=== PATIENT | male | born 1965 | race American Indian/Alaskan Native ===

== ENCOUNTER 2020-05-01 10:32 | Emergency (ER) | payer MEDICARE ==
[2020-05-01 10:40] VITALS: BP 148/95
[2020-05-01] MEDS ORDERED: ASPIRIN 325 MG TAB PO ONE (10:40)
--- NOTE | 2020-05-01 11:12 | XRay Report ---
CHEST 2 VIEWS INDICATION / CLINICAL INFORMATION: Chest Pain. COMPARISON: None available. FINDINGS: SUPPORT DEVICES: None. HEART / MEDIASTINUM: No significant abnormality. LUNGS / PLEURA: No significant pulmonary or pleural abnormality. No pneumothorax. ADDITIONAL FINDINGS: No significant additional findings. IMPRESSION: No acute cardiopulmonary abnormality. Signer Name: Davey Fung MD Signed: 05/01/2020 11:07 AM Workstation Name: [id number]
[2020-05-01 11:41] LABS: Basophils # (Auto) 0.1 K/mm3 (0.0-0.1); Eosinophils # (Auto) 0.5 K/mm3 (0.0-0.4); Hematocrit 46.3 % (35.5-45.6); Hemoglobin 15.7 gm/dl (11.8-15.2); Lymphocytes # (Auto) 2.7 K/mm3 (1.2-5.4); Lymphocytes % (Auto) 30.1 % (13.4-35.0); Mean Corpuscular HGB Conc 34 % (32-34); Mean Corpuscular Volume 87 fl (84-94); Monocytes # (Auto) 0.6 K/mm3 (0.0-0.8); Platelet Count 203 K/mm3 (140-440); Red Cell Distribution Width 14.5 % (13.2-15.2)
[2020-05-01 11:44] LABS: Basophils % (Auto) 0.7 % (0.0-1.8); Eosinophils % (Auto) 5.5 % (0.0-4.3)
[2020-05-01 12:11] LABS: BUN/Creatinine Ratio 9; Blood Urea Nitrogen 8 mg/dL (9-20); Calcium 9.2 mg/dL (8.4-10.2); Hemolysis Index 10
--- NOTE | 2020-05-01 13:06 | Emergency Department Report ---
<ELIZABETH MAURER - Last Filed: 05/02/20 18:37> ED General Adult HPI - General Chief complaint: Chest Pain Stated complaint: CHEST PAIN Time Seen by Provider: 05/01/20 12:56 Source: patient Mode of arrival: Ambulatory Limitations: No Limitations - History of Present Illness Initial comments: 54-year-old -[place] male presents to the emergency room complaining of left-sided chest pain that is intermittent since last night. Patient denies any nausea vomiting no diaphoresis. Patient reports he does suffer from anxiety and has had chest pains in the past but was not sure if this is the same. Patient is followed by Dr. Trevon Guzman as a primary care provider and has seen Dr. You from [facility] 2 to 3 years ago with a duplex in a stress test. Patient reports he does not have pain at this time. Patient denies any any other past medical history except hypertension and he takes his lisinopril 5 mg daily and has hydrochlorothiazide 12.5 mg daily. -: Last night Location: chest Radiation: non-radiation Severity scale (0 -10): 5 Quality: stabbing, sharp Consistency: intermittent Improves with: rest Worsens with: none Associated Symptoms: denies: cough, diaphoresis, fever/chills, headaches, loss of appetite, malaise, nausea/vomiting, shortness of breath Treatments Prior to Arrival: none - Related Data Allergies Allergy/AdvReac Type Severity Reaction Status Date / Time sulfamethoxazole AdvReac Hives Verified 05/01/20 10:40 [From Bactrim] trimethoprim [From Bactrim] AdvReac Hives Verified 05/01/20 10:40 ED Past Medical Hx - Past Medical History Hx Hypertension: Yes - Surgical History Past Surgical History?: Yes Additional Surgical History: lumbar sx - Social History Smoking Status: Former Smoker Substance Use Type: Alcohol ED Physical Exam - General Limitations: No Limitations General appearance: alert, in no apparent distress - Head Head exam: Present: atraumatic, normocephalic - Eye Eye exam: Present: normal appearance - ENT ENT exam: Present: mucous membranes moist - Neck Neck exam: Present: normal inspection - Respiratory Respiratory exam: Present: normal lung sounds bilaterally. Absent: respiratory distress - Cardiovascular Cardiovascular Exam: Present: regular rate, normal rhythm. Absent: systolic murmur, diastolic murmur, rubs, gallop - GI/Abdominal GI/Abdominal exam: Present: soft, normal bowel sounds. Absent: distended, tenderness, guarding - Extremities Exam Extremities exam: Present: normal inspection - Back Exam Back exam: Present: normal inspection - Neurological Exam Neurological exam: Present: alert, oriented X3, normal gait - Psychiatric Psychiatric exam: Present: normal affect, normal mood - Skin Skin exam: Present: warm, dry, intact, normal color. Absent: rash ED Medical Decision Making - Lab Data Result diagrams: 05/01/20 11:18 05/01/20 11:18 - Radiology Data Radiology results: report reviewed Patient: PATRICE GARCIA MR#: [id number] : 1965 Acct:[id number] Age/Sex: 54 / M ADM Date: 05/01/20 Loc: ED Attending Dr: Ordering Physician: SHARDA RAMSEY MD Date of Service: 05/01/20 Procedure(s): XR chest routine 2V Accession Number(s): [id number] cc: ED MD ROXY Fluoro Time In Minutes: CHEST 2 VIEWS INDICATION / CLINICAL INFORMATION: Chest Pain. COMPARISON: None available. FINDINGS: SUPPORT DEVICES: None. HEART / MEDIASTINUM: No significant abnormality. LUNGS / PLEURA: No significant pulmonary or pleural abnormality. No pneu mothorax. ADDITIONAL FINDINGS: No significant additional findings. IMPRESSION: No acute cardiopulmonary abnormality. Signer Name: Tarsha Fung MD Signed: 05/01/2020 11:07 AM Workstation Name: [id number] Transcribed By: SS Dictated By: TARSHA FUNG Electronically Authenticated By: TARSHA FUNG Signed Date/Time: 05/01/201106 DD/ 06 TD/TT: - Medical Decision Making 54-year-old -[place] male presents to the emergency room complaining of left-sided chest pain that is intermittent since last night. Patient denies any nausea vomiting no diaphoresis. Patient reports he does suffer from anxiety and has had chest pains in the past but was not sure if this is the same. Patient is followed by Dr. Trevon Guzmna as a primary care provider and has seen Dr. You from [facility] 2 to 3 years ago with a duplex in a stress test. Patient reports he does not have pain at this time. Patient denies any any other past medical history except hypertension and he takes his lisinopril 5 mg daily and has hydrochlorothiazide 12.5 mg daily. Labs are stable no elevation of troponin. Chest x-ray shows no acute abnormalities. EKG is borderline ST elevation in the anterior leads signed off by Dr. Patrice Carter. ED Disposition Clinical Impression: Atypical chest pain, Anxiety Disposition: DC-01 TO HOME OR SELFCARE Is pt being admited?: No Does the pt Need Aspirin: No Condition: Stable Instructions: Chest Pain (ED) Additional Instructions: Recommend to continue with your hypertensive medication. 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 Return back to the emergency room with any worsening chest pain shortness of breath. Referrals: TREVON GUZMAN MD [Primary Care Provider] - 3-5 Days NORMAN YOU MD [Staff Physician] - 3-5 Days Forms: AMA Form, Work/School Release Form(ED) <PATRICE CARTER - Last Filed: 05/03/20 00:22> ED Review of Systems ROS: Stated complaint: CHEST PAIN Other details as noted in HPI ED Course Vital Signs 05/01/20 10:38 Temperature 97.9 F Pulse Rate 86 Respiratory 18 Rate Blood Pressure 148/95 O2 Sat by Pulse 98 Oximetry ED Medical Decision Making - Lab Data Result diagrams: 05/01/20 11:18 05/01/20 11:18 Critical care attestation.: If time is entered above; I have spent that time in minutes in the direct care of this critically ill patient, excluding procedure time. ED Disposition Is pt being admited?: No Does the pt Need Aspirin: No
== END 2020-05-01 14:53 | disposition home or self-care (01) ==
LOC: ED 10:32
DX: R07.89 Other chest pain (principal); F41.9 Anxiety disorder, unspecified; I10 Essential (primary) hypertension; Z98.890 Other specified postprocedural states; Z87.891 Personal history of nicotine dependence; Z88.8 Allergy status to other drugs, medicaments and biological substances
CPT/HCPCS: 36415; 71046; 80048; 84484; 85025; 93005

== ENCOUNTER 2021-11-27 10:50 | Emergency (ER) | payer MEDICARE ==
[2021-11-27] MEDS ORDERED: HEPARIN 10,000 UNITS/10 ML VIAL IV PRN (11:36)
[2021-11-27] MEDS ORDERED: SODIUM CHLORIDE 0.9% 1000 ML 1,000 ML IV ONE (11:36)
[2021-11-27 11:46] VITALS: BP 131/76
--- NOTE | 2021-11-27 12:11 | XRay Report ---
CHEST 1 VIEW INDICATION / CLINICAL INFORMATION: Dysrhythmia STUDY TIME: 1152 COMPARISON: 05/01/2020 and 08/21/2011 but only lateral views available currently FINDINGS: SUPPORT DEVICES: None HEART / MEDIASTINUM: No significant abnormality. LUNGS / PLEURA: No significant acute pulmonary or pleural abnormality. No pneumothorax. ADDITIONAL FINDINGS: No significant additional findings. Signer Name: Param Rodriguez MD Signed: 11/27/2021 12:07 PM Workstation Name: [id number]
[2021-11-27 12:29] LABS: Basophils # (Auto) 0.1 K/mm3 (0.0-0.1); Basophils % (Auto) 0.7 % (0.0-1.8); Eosinophils # (Auto) 0.5 K/mm3 (0.0-0.4); Eosinophils % (Auto) 5.8 % (0.0-4.3); Hematocrit 49.6 % (35.5-45.6); Hemoglobin 16.3 gm/dl (11.8-15.2); Lymphocytes # (Auto) 2.5 K/mm3 (1.2-5.4); Lymphocytes % (Auto) 31.7 % (13.4-35.0); Mean Corpuscular HGB Conc 33 % (32-34); Mean Corpuscular Volume 87 fl (84-94); Monocytes # (Auto) 0.6 K/mm3 (0.0-0.8); Monocytes % (Auto) 7.6 % (0.0-7.3); Platelet Count 175 K/mm3 (140-440); Red Blood Count 5.68 M/mm3 (3.65-5.03); Red Cell Distribution Width 13.9 % (13.2-15.2)
[2021-11-27 12:36] LABS: INR 0.98 (0.87-1.13)
[2021-11-27 12:58] LABS: Bilirubin,Urine NEG (Negative); Blood,Urine NEG (Negative); Color,Urine Yellow (Yellow); Mucus,Urine FEW /HPF; Protein,Urine <15 mg/dL mg/dL (Negative); Urobilinogen,Urine < 2.0 mg/dL (<2.0)
[2021-11-27 13:05] LABS: Amphetamine Screen,Urine Negative; Benzodiazepines Screen,Urine Negative; Cannabinoid Screen,Urine Negative; Cocaine Screen,Urine Negative; Methadone Screen,Urine Negative; Opiate Screen,Urine Negative
[2021-11-27 13:15] LABS: Creatine Kinase MB 4.8 ng/mL (0.0-4.0)
[2021-11-27 13:18] LABS: Alanine Aminotransferase 21 units/L (7-56); Albumin 4.5 g/dL (3.9-5); BUN/Creatinine Ratio 12; Blood Urea Nitrogen 11 mg/dL (9-20); Calcium 9.3 mg/dL (8.4-10.2); Hemolysis Index 9
--- NOTE | 2021-11-27 13:25 | Emergency Department Report ---
ED Palpitations HPI - General Chief Complaint: Arrhythmia/Palpitations Stated Complaint: CHEST PAIN PALPITATION Time Seen by Provider: 11/27/21 11:36 Source: patient Mode of arrival: Ambulatory Limitations: No Limitations - History of Present Illness Initial Comments: C/O chest pain and palpitations for 3-4 days pt son was killed and has been having palpitation for few days on and off he feels it gets fast then slow -: Sudden, days(s) Context: occured during rest Associated Symptoms: chest pain. denies: shortness of breath, syncope, near- syncope, diaphoresis, cough, parasthesias, feeling of impending doom - Related Data Home Medications Medication Instructions Recorded Confirmed Last Taken ALPRAZolam [Xanax TAB] 2 mg PO TID PRN 10/15/21 10/15/21 Unknown Aspirin [Bostonia Aspirin EC] 81 mg PO DAILY 10/15/21 10/15/21 Unknown HYDROcodone/APAP 5-325 [[place] 1 each PO Q6HR PRN 10/15/21 10/15/21 Unknown 5/325] Lisinopril/Hydrochlorothiazide 1 each PO DAILY 10/15/21 10/15/21 Unknown [Zestoretic 10-12.5 mg Tablet] Omeprazole 20 mg PO DAILY 10/15/21 10/15/21 Unknown Tamsulosin [Flomax] 0.4 mg PO QDAY 10/15/21 10/15/21 Unknown Allergies Allergy/AdvReac Type Severity Reaction Status Date / Time sulfamethoxazole AdvReac Hives Verified 05/01/20 10:40 [From Bactrim] trimethoprim [From Bactrim] AdvReac Hives Verified 05/01/20 10:40 ED Review of Systems ROS: Stated complaint: CHEST PAIN PALPITATION Other details as noted in HPI Constitutional: denies: chills, fever Eyes: denies: eye pain, eye discharge, vision change ENT: denies: ear pain, throat pain Respiratory: denies: cough, shortness of breath, wheezing Cardiovascular: denies: chest pain, palpitations Endocrine: no symptoms reported Gastrointestinal: denies: abdominal pain, nausea, diarrhea Genitourinary: denies: urgency, dysuria Musculoskeletal: denies: back pain, joint swelling, arthralgia Skin: denies: rash, lesions Neurological: denies: headache, weakness, paresthesias Psychiatric: denies: anxiety, depression Hematological/Lymphatic: denies: easy bleeding, easy bruising ED Past Medical Hx - Past Medical History Previous Medical History?: Yes Hx Hypertension: Yes (X 15 YRS) Hx GERD: Yes Additional medical history: Heart palpitation - Surgical History Past Surgical History?: Yes Additional Surgical History: lumbar sx - Social History Smoking Status: Former Smoker - Medications Home Medications: Home Medications Medication Instructions Recorded Confirmed Last Taken Type ALPRAZolam [Xanax TAB] 2 mg PO TID PRN 10/15/21 10/15/21 Unknown History Aspirin [Bostonia Aspirin EC] 81 mg PO DAILY 10/15/21 10/15/21 Unknown History HYDROcodone/APAP 5-325 [[place] 1 each PO Q6HR PRN 10/15/21 10/15/21 Unknown History 5/325] Lisinopril/Hydrochlorothiazide 1 each PO DAILY 10/15/21 10/15/21 Unknown History [Zestoretic 10-12.5 mg Tablet] Omeprazole 20 mg PO DAILY 10/15/21 10/15/21 Unknown History Tamsulosin [Flomax] 0.4 mg PO QDAY 10/15/21 10/15/21 Unknown History ED Physical Exam - General Limitations: No Limitations General appearance: alert, in no apparent distress - Head Head exam: Present: atraumatic, normocephalic - Eye Eye exam: Present: normal appearance - ENT ENT exam: Present: mucous membranes moist - Neck Neck exam: Present: normal inspection - Respiratory Respiratory exam: Present: normal lung sounds bilaterally. Absent: respiratory distress - Cardiovascular Cardiovascular Exam: Present: regular rate, normal rhythm. Absent: systolic murmur, diastolic murmur, rubs, gallop - GI/Abdominal GI/Abdominal exam: Present: soft, normal bowel sounds - Rectal Rectal exam: Present: deferred - Extremities Exam Extremities exam: Present: normal inspection - Back Exam Back exam: Present: normal inspection - Neurological Exam Neurological exam: Present: alert, oriented X3 - Psychiatric Psychiatric exam: Present: normal affect, normal mood - Skin Skin exam: Present: warm, dry, intact, normal color. Absent: rash ED Course Vital Signs 11/27/21 11:46 Temperature 98.7 F Pulse Rate 83 Respiratory 20 Rate Blood Pressure 131/76 [Right] O2 Sat by Pulse 98 Oximetry - Reevaluation(s) Reevaluation #1: 11/27/21 13:24 work up negative , vss , ekg showed normal sinus rythm ED Medical Decision Making - Lab Data Result diagrams: 11/27/21 12:04 11/27/21 12:04 - EKG Data -: EKG Interpreted by Me EKG shows normal: sinus rhythm Rate: normal - EKG Data When compared to previous EKG there are: no significant change Critical care attestation.: If time is entered above; I have spent that time in minutes in the direct care of this critically ill patient, excluding procedure time. ED Disposition Clinical Impression: Palpitation Disposition: 01 HOME / SELF CARE / HOMELESS Is pt being admited?: No Does the pt Need Aspirin: No Condition: Stable Instructions: Palpitations, [id number] Referrals: ANUPAM MONTES MD [Primary Care Provider] - 3-5 Days NORMAN YOU MD [Staff Physician] - 3-5 Days
--- NOTE | 2021-11-30 08:58 | Electrocardiograph Report ---
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
== END 2021-11-27 14:02 | disposition home or self-care (01) ==
LOC: ED 10:50
DX: R00.2 Palpitations (principal); I10 Essential (primary) hypertension; Z87.891 Personal history of nicotine dependence; Z88.2 Allergy status to sulfonamides; Z79.899 Other long term (current) drug therapy
CPT/HCPCS: 36415; 71045; 80053; 80307; 81001; 82550; 82553; 84484; 85025; 85610; 93005; 96360; 99284

== ENCOUNTER 2021-12-20 22:55 | Emergency (ER) | payer MEDICARE ==
[2021-12-20 23:36] LABS: Basophils # (Auto) 0.1 K/mm3 (0.0-0.1); Basophils % (Auto) 0.7 % (0.0-1.8); Eosinophils # (Auto) 0.4 K/mm3 (0.0-0.4); Eosinophils % (Auto) 4.7 % (0.0-4.3); Hematocrit 45.7 % (35.5-45.6); Hemoglobin 15.1 gm/dl (11.8-15.2); Lymphocytes # (Auto) 2.9 K/mm3 (1.2-5.4); Lymphocytes % (Auto) 34.8 % (13.4-35.0); Mean Corpuscular HGB Conc 33 % (32-34); Mean Corpuscular Volume 88 fl (84-94); Monocytes # (Auto) 0.7 K/mm3 (0.0-0.8); Monocytes % (Auto) 8.9 % (0.0-7.3); Platelet Count 170 K/mm3 (140-440); Red Blood Count 5.22 M/mm3 (3.65-5.03); Red Cell Distribution Width 14.6 % (13.2-15.2)
--- NOTE | 2021-12-20 23:57 | XRay Report ---
CHEST 2 VIEWS INDICATION / CLINICAL INFORMATION: SOB, CP, HTN. COMPARISON: Chest x-ray 11/27/2021 FINDINGS: SUPPORT DEVICES: None. HEART / MEDIASTINUM: No significant abnormality. LUNGS / PLEURA: No significant pulmonary or pleural abnormality. No pneumothorax. BONES: No significant osseous abnormality. ADDITIONAL FINDINGS: No significant additional findings. IMPRESSION: 1. No active cardiopulmonary disease. Signer Name: Luis Yeager II, MD Signed: 12/20/2021 11:53 PM Workstation Name: [id number]
[2021-12-21 00:23] LABS: Alanine Aminotransferase 17 units/L (7-56); BUN/Creatinine Ratio 12; Blood Urea Nitrogen 12 mg/dL (9-20); Calcium 8.9 mg/dL (8.4-10.2); Hemolysis Index 9
[2021-12-21] MEDS ORDERED: PANTOPRAZOLE 40 MG TAB PO ONE (02:18)
[2021-12-21] MEDS ORDERED: METOCLOPRAMIDE 10 MG TAB PO ONE (02:18)
[2021-12-21] MEDS ORDERED: diphenhydrAMINE 25 MG CAP PO ONE (02:18)
[2021-12-21] MEDS ORDERED: ACETAMINOPHEN 325 MG TAB PO ONE (02:18)
--- NOTE | 2021-12-21 02:18 | Emergency Department Report ---
ED General Adult HPI - General Chief complaint: High BP Stated complaint: HIGHBLOOD PRESSURE PUI?: No Time Seen by Provider: 12/21/21 02:07 Source: patient, RN notes reviewed, old records reviewed Mode of arrival: Ambulatory Limitations: No Limitations - History of Present Illness Initial comments: Cardiology: [facility] This patient is a 56-year-old gentleman with a history of hypertension, body mass index of 31 and anxiety, who presents to the ER today with a complaint of high blood pressure at home, 160 mmHg, associated with nontraumatic occipital and trapezius pain/strain, not associated with sudden or thunderclap headache, also complaining of nonspecific chest pressure. The pressure does not radiate to the back, arms or neck. He denies vomiting, diaphoresis exertional shortness of breath. Denies travel, surgery, immobilization, DVT/PE risk factors. Denies loss of vision, abdominal pain, vomiting, and reports marked improvement in symptoms with alprazolam. He does report that he feels that his "anxiety" is acting up, and he also reports that he has follow-up with his stock or delivery clerk tomorrow, December 22 -: Sudden Location: neck, chest Radiation: non-radiation Quality: stabbing Consistency: intermittent, now resolved Improves with: medication Worsens with: none - Related Data Home Medications Medication Instructions Recorded Confirmed Last Taken ALPRAZolam [Xanax TAB] 2 mg PO TID PRN 10/15/21 10/15/21 Unknown Aspirin [Blue Ball Aspirin EC] 81 mg PO DAILY 10/15/21 10/15/21 Unknown HYDROcodone/APAP 5-325 [Hobbs 1 each PO Q6HR PRN 10/15/21 10/15/21 Unknown 5/325] Lisinopril/Hydrochlorothiazide 1 each PO DAILY 10/15/21 10/15/21 Unknown [Zestoretic 10-12.5 mg Tablet] Omeprazole 20 mg PO DAILY 10/15/21 10/15/21 Unknown Tamsulosin [Flomax] 0.4 mg PO QDAY 10/15/21 10/15/21 Unknown Allergies Allergy/AdvReac Type Severity Reaction Status Date / Time sulfamethoxazole AdvReac Hives Verified 05/01/20 10:40 [From Bactrim] trimethoprim [From Bactrim] AdvReac Hives Verified 05/01/20 10:40 ED Review of Systems ROS: Stated complaint: HIGHBLOOD PRESSURE Other details as noted in HPI Comment: All other systems reviewed and negative Respiratory: denies: shortness of breath Cardiovascular: as per HPI Gastrointestinal: denies: abdominal pain Musculoskeletal: myalgia Psychiatric: anxiety ED Past Medical Hx - Past Medical History Previous Medical History?: Yes Hx Hypertension: Yes (X 15 YRS) Hx GERD: Yes Additional medical history: Heart palpitation - Surgical History Past Surgical History?: Yes Additional Surgical History: lumbar sx - Social History Smoking Status: Former Smoker - Medications Home Medications: Home Medications Medication Instructions Recorded Confirmed Last Taken Type ALPRAZolam [Xanax TAB] 2 mg PO TID PRN 10/15/21 10/15/21 Unknown History Aspirin [Blue Ball Aspirin EC] 81 mg PO DAILY 10/15/21 10/15/21 Unknown History HYDROcodone/APAP 5-325 [Hobbs 1 each PO Q6HR PRN 10/15/21 10/15/21 Unknown His tory 5/325] Lisinopril/Hydrochlorothiazide 1 each PO DAILY 10/15/21 10/15/21 Unknown History [Zestoretic 10-12.5 mg Tablet] Omeprazole 20 mg PO DAILY 10/15/21 10/15/21 Unknown History Tamsulosin [Flomax] 0.4 mg PO QDAY 10/15/21 10/15/21 Unknown History ED Physical Exam - General Limitations: No Limitations General appearance: alert, in no apparent distress, obese - Head Head exam: Present: atraumatic, normocephalic - Eye Eye exam: Present: normal appearance, EOMI. Absent: nystagmus - ENT ENT exam: Present: normal exam, normal orophraynx, mucous membranes moist, no rmal external ear exam - Neck Neck exam: Present: normal inspection, full ROM. Absent: tenderness, meningismus - Respiratory Respiratory exam: Present: normal lung sounds bilaterally. Absent: respiratory distress, wheezes, rales, rhonchi, stridor, decreased breath sounds - Cardiovascular Cardiovascular Exam: Present: regular rate, normal rhythm, normal heart sounds. Absent: bradycardia, tachycardia, irregular rhythm, systolic murmur, diastolic murmur, rubs, gallop - GI/Abdominal GI/Abdominal exam: Present: soft. Absent: distended, tenderness, guarding, rebound, rigid, pulsatile mass - Rectal Rectal exam: Present: deferred - Extremities Exam Extremities exam: Present: normal inspection, full ROM, other (2+ pulses noted in the bilateral upper and lower extremities. There is no palpable cord. negative Homans sign. Muscular compartments are soft. The pelvis is stable.). Absent: pedal edema, calf tenderness - Back Exam Back exam: Present: normal inspection, full ROM. Absent: tenderness, CVA tenderness (R), CVA tenderness (L), paraspinal tenderness, vertebral tenderness - Neurological Exam Neurological exam: Present: alert (There is no past-pointing. There is normal [id number]. There is no pronator drift.), oriented X3, normal gait, other (No facial droop. Tongue midline. Extraocular movements intact bilaterally. Facial sensation intact to light touch in V1, V2, V3 distribution bilaterally. 5 and a 5 strength in 4 extremities. Sensation intact to light touch in 4 extremities.). Absent: motor sensory deficit - Psychiatric Psychiatric exam: Present: anxious - Skin Skin exam: Present: warm, dry, intact, normal color. Absent: rash ED Course Vital Signs 12/20/21 12/21/21 12/21/21 23:03 01:12 02:43 Temperature 98.5 F Pulse Rate 65 65 Respiratory 16 16 18 Rate Blood Pressure 154/89 151/94 [Right] O2 Sat by Pulse 98 100 Oximetry 12/21/21 12/21/21 02:44 02:45 Temperature Pulse Rate 60 Respiratory 18 18 Rate Blood Pressure 149/85 [Right] O2 Sat by Pulse 98 98 Oximetry - Reevaluation(s) Reevaluation #1: 12/21/21 03:15 Differential diagnosis, including but not limited to: Hypertension, anxiety, GERD, gastritis, hiatal hernia, coronary artery disease Assessment and plan: 56-year-old gentleman, who is afebrile, with reassuring vital signs, not tachycardic, tachypneic or hypoxic, denies DVT, pulmonary embolism risk factors, low risk by Wells criteria, EKG essentially unchanged x2 from prior, troponin negative x2, low risk for major adverse cardiac event as per heart score, with benign and unremarkable physical examination, with a GCS of 15, an NIH score of 0. Reassurance provided to patient and family. He has follow-up with his stock or delivery clerk within the next 48 hours. He may follow-up expectantly, continue outpatient medications. Return precautions are reviewed. All questions answered. Headache not sudden or thunderclap in nature, not maximal in intensity, not the worst headache of his life. On final reassessment, patient resting comfortably on his chair/stretcher, in no acute distress, smiling, pleasant, cooperative, and endorses significant improvement in symptoms. ED Medical Decision Making - Lab Data Result diagrams: 12/20/21 23:24 12/20/21 23:24 Vital Signs 12/20/21 12/21/21 12/21/21 23:03 01:12 02:43 Temperature 98.5 F Pulse Rate 65 65 Respiratory 16 16 18 Rate Blood Pressure 154/89 151/94 [Right] O2 Sat by Pulse 98 100 Oximetry 12/21/21 12/21/21 02:44 02:45 Temperature Pulse Rate 60 Respiratory 18 18 Rate Blood Pressure 149/85 [Right] O2 Sat by Pulse 98 98 Oximetry Lab Results 12/20/21 12/20/21 12/21/21 Range/Units 23:24 23:24 02:22 WBC 8.3 (4.5-11.0) K/mm3 RBC 5.22 H (3.65-5.03) M/mm3 Hgb 15.1 (11.8-15.2) gm/dl Hct 45.7 H (35.5-45.6) % MCV 88 (84-94) fl MCH 29 (28-32) pg MCHC 33 (32-34) % RDW 14.6 (13.2-15.2) % Plt Count 170 (140-440) K/mm3 Lymph % (Auto) 34.8 (13.4-35.0) % [place] % (Auto) 8.9 H (0.0-7.3) % Eos % (Auto) 4.7 H (0.0-4.3) % Baso % (Auto) 0.7 (0.0-1.8) % Lymph # (Auto) 2.9 (1.2-5.4) K/mm3 [place] # (Auto) 0.7 (0.0-0.8) K/mm3 Eos # (Auto) 0.4 (0.0-0.4) K/mm3 Baso # (Auto) 0.1 (0.0-0.1) K/mm3 Seg Neutrophils % 50.9 (40.0-70.0) % Seg Neutrophils # 4.2 (1.8-7.7) K/mm3 Sodium 140 (137-145) mmol/L Potassium 3.8 (3.6-5.0) mmol/L Chloride 104.5 (98-107) mmol/L Carbon Dioxide 26 (22-30) mmol/L Anion Gap 13 mmol/L BUN 12 (9-20) mg/dL Creatinine 1.0 (0.8-1.3) mg/dL Estimated GFR > 60 ml/min BUN/Creatinine Ratio 12 % Glucose 105 H (75-100) mg/dL Calcium 8.9 (8.4-10.2) mg/dL Total Bilirubin 0.30 (0.1-1.2) mg/dL AST 13 (5-40) units/L ALT 17 (7-56) units/L Alkaline Phosphatase 81 (35-129) units/L Troponin T < 0.010 < 0.010 (0.00-0.029) ng/mL Total Protein 6.3 (6.3-8.2) g/dL Albumin 4.0 (3.9-5) g/dL Albumin/Globulin Ratio 1.7 % - EKG Data -: EKG Interpreted by Tx EKG shows normal: sinus rhythm Rate: normal - EKG Data Interpretation: unchanged when compared t 12/21/21 03:12 EKG #1 is interpreted at 23: 11 Sinus rhythm, rate 55 bpm, bradycardia, left axis deviation, left anterior fascicular block, and left ventricular hypertrophy. This is an abnormal EKG. This is not a STEMI. This appears to be unchanged from prior EKG from November 2021. EKG #2 is interpreted at 02: 27 Sinus rhythm, rate 56 bpm. Normal axis, normal intervals, left ventricular hypertrophy, and normal P wave axis. This is unchanged from prior EKG, with the exception of positively deflected QRS complex in aVF. This EKG is not a STEMI - Radiology Data Radiology results: pending, report reviewed, image reviewed CHEST 2 VIEWS INDICATION / CLINICAL INFORMATION: SOB, CP, HTN. COMPARISON: Chest x-ray 11/27/2021 FINDINGS: SUPPORT DEVICES: None. HEART / MEDIASTINUM: No significant abnormality. LUNGS / PLEURA: No significant pulmonary or pleural abnormality. No pneumothorax. BONES: No significant osseous abnormality. ADDITIONAL FINDINGS: No significant additional findings. IMPRESSION: 1. No active cardiopulmonary disease. Signer Name: Luis Yeager II, MD Signed: 12/20/2021 10:53 PM Workstation Name: [id number] Critical care attestation.: If time is entered above; I have spent that time in minutes in the direct care of this critically ill patient, excluding procedure time. ED Disposition Clinical Impression: Anxiety, Elevated blood pressure reading, Nonspecific chest pain Headache Qualifiers: Headache type: unspecified Headache chronicity pattern: episodic headache Intractability: not intractable Qualified Code(s): R51.9 - Headache, unspecified Disposition: 01 HOME / SELF CARE / HOMELESS Is pt being admited?: No Does the pt Need Aspirin: No Condition: Stable Instructions: Nonspecific Chest Pain, Adult Additional Instructions: Please continue current outpatient medications. Please follow-up with your stock or delivery clerk this week as scheduled. Please continue outpatient alprazolam/Xanax for anxiety. Patient may take [id number] Tylenol or ibuprofen as needed for physical pain. Please return to the emergency room right away with new pain, worsened pain, migration of pain, projectile vomiting, change in mental status, confusion, inability tolerate liquid feeds, new, worsened or different symptoms not present on the initial emergency room evaluation Referrals: NORMAN YOU MD [Staff Physician] - 12/22/21 Forms: Work/School Release Form(ED) Heart Score - HEART Score History: Slightly suspicious EKG: Non-specific Age: 45-65 Risk factors: 1-2 risk factors Troponin: < normal limit HEART Score: 3 - EKG Read Time Time EKG Completed: 23:11 EKG Read Time: 23:11 - Critical Actions Critical Actions: 0-3 pts:0.9-1.7%risk of adverse cardiac event.Candidate for discharge
[2021-12-21] MEDS ORDERED: ALPRAZolam 1 MG TAB PO ONE (02:20)
[2021-12-21 03:39] VITALS: BP 133/76
--- NOTE | 2021-12-21 11:33 | Electrocardiograph Report ---
[facility] Test Date: 2021-12-20 Test Time: 23:11:25 Pat Name: REMIGIO PENNINGTONELL Department: Room: Gender: M Studio Manager: JUAQUIN Cornell : 1965 Requested By: REMIGIO LACY Order Number: [id number] Reading MD: Rusty Gonzales Measurements Intervals [place] Rate: 55 P: 48 [place]: 164 QRS: -17 QRSD: 88 T: 1 QT: 419 QTc: 400 Interpretive Statements Sinus rhythm Probable left atrial enlargement Compared to ECG 11/27/2021 11:00:19 No significant changes Electronically Signed On 12-21-2021 11:33:24 EDT by Rusty Gonzales
--- NOTE | 2021-12-21 11:34 | Electrocardiograph Report ---
[facility] Test Date: 2021-12-21 Test Time: 02:27:39 Pat Name: REMIGIO GARCIA Department: Room: Gender: M Biotechnician: SHAHBAZ : 1965 Requested By: REMIGIO LACY Order Number: [id number] Reading MD: Rusty Gonzales Measurements Intervals [place] Rate: 56 P: 57 [place]: 158 QRS: 10 QRSD: 87 T: 19 QT: 413 QTc: 400 Interpretive Statements Sinus rhythm Compared to ECG 11/27/2021 11:00:19 No significant changes Electronically Signed On 12-21-2021 11:34:33 EDT by Rusty Gonzales
== END 2021-12-21 03:35 | disposition home or self-care (01) ==
LOC: ED 22:55
DX: I10 Essential (primary) hypertension (principal); F41.9 Anxiety disorder, unspecified; R07.9 Chest pain, unspecified; R51.9 Headache, unspecified; Z87.891 Personal history of nicotine dependence
CPT/HCPCS: 36415; 71046; 80053; 84484; 85025; 93005; 99284

== ENCOUNTER 2022-02-01 08:14 | Emergency (ER) | payer MEDICARE ==
[2022-02-01 08:21] VITALS: BP 141/72
[2022-02-01 09:28] LABS: Basophils # (Auto) 0.1 K/mm3 (0.0-0.1); Basophils % (Auto) 0.8 % (0.0-1.8); Eosinophils # (Auto) 0.4 K/mm3 (0.0-0.4); Eosinophils % (Auto) 4.6 % (0.0-4.3); Hematocrit 49.9 % (35.5-45.6); Hemoglobin 16.7 gm/dl (11.8-15.2); Lymphocytes # (Auto) 2.4 K/mm3 (1.2-5.4); Lymphocytes % (Auto) 27.8 % (13.4-35.0); Mean Corpuscular HGB Conc 33 % (32-34); Mean Corpuscular Volume 87 fl (84-94); Monocytes # (Auto) 0.6 K/mm3 (0.0-0.8); Monocytes % (Auto) 7.1 % (0.0-7.3); Platelet Count 158 K/mm3 (140-440); Red Blood Count 5.75 M/mm3 (3.65-5.03); Red Cell Distribution Width 14.4 % (13.2-15.2)
[2022-02-01 09:53] LABS: Creatine Kinase MB 4.5 ng/mL (0.0-4.0)
[2022-02-01 09:54] LABS: Alanine Aminotransferase 22 units/L (7-56); Albumin 4.5 g/dL (3.9-5); BUN/Creatinine Ratio 10; Blood Urea Nitrogen 10 mg/dL (9-20); Calcium 9.3 mg/dL (8.4-10.2); Hemolysis Index 43
[2022-02-01 09:58] LABS: INR 0.97 (0.87-1.13)
[2022-02-01 09:59] LABS: Partial Thromboplastin Time 30.9 Sec. (24.2-36.6)
[2022-02-01 10:06] LABS: Free T4 (Free Thyroxine) 1.22 ng/dL (0.76-1.46)
--- NOTE | 2022-02-01 10:46 | Electrocardiograph Report ---
[facility] Test Date: 2022-02-01 Test Time: 08:23:16 Pat Name: REMIGIO GARCIA Department: Room: Gender: M Laser Engineer: DORA ROGERSB: 1965 Requested By: ED DOC Order Number: [id number] Reading MD: Rusty Gonzales Measurements Intervals [place] Rate: 82 P: 57 [place]: 153 QRS: -16 QRSD: 89 T: 18 QT: 385 QTc: 436 Interpretive Statements Sinus rhythm Atrial premature complexes nonspecific st-t Compared to ECG 12/21/2021 02:27:39 Atrial premature complex(es) now present Electronically Signed On 02-01-2022 10:45:55 EDT by Rusty Gonzales
--- NOTE | 2022-02-01 12:40 | XRay Report ---
CHEST 2 VIEWS INDICATION / CLINICAL INFORMATION: cp. COMPARISON: 12/20/2021 FINDINGS: SUPPORT DEVICES: None. HEART / MEDIASTINUM: No significant abnormality. LUNGS / PLEURA: No significant pulmonary or pleural abnormality. No pneumothorax. ADDITIONAL FINDINGS: No significant additional findings. IMPRESSION: 1. No acute findings. Signer Name: Bobby Grubbs MD Signed: 02/01/2022 12:32 PM Workstation Name: [id number]
== END 2022-02-01 23:30 | disposition left against medical advice (07) ==
LOC: ED 08:14
DX: R00.2 Palpitations (principal); Z53.21 Procedure and treatment not carried out due to patient leaving prior to being seen by health care provider
CPT/HCPCS: 36415; 71046; 80053; 82550; 82553; 83735; 84439; 84443; 84484; 85025; 85610; 85730; 93005